=== PATIENT | female | born 1970 | race Caucasian/White ===

== ENCOUNTER → 2023-11-23 15:42 | Outpatient (REF) | payer OTHER, SELFPAY | LOC: HWWDC 15:42 | PROVIDERS: ATTENDING PHYSICIAN Physician Assistant | DX: Z12.31 Encounter for screening mammogram for malignant neoplasm of breast (principal) | CPT/HCPCS: 77063; 77067 ==

== ENCOUNTER → 2024-12-12 18:41 | Outpatient (REF) | payer OTHER, SELFPAY | LOC: WDC 18:41 | PROVIDERS: ATTENDING PHYSICIAN Family Medicine | DX: Z12.31 Encounter for screening mammogram for malignant neoplasm of breast (principal) | CPT/HCPCS: 77063; 77067 ==